=== PATIENT | male | born 1995 ===

== ENCOUNTER 2023-06-18 11:59 | Emergency (ER) | payer SELFPAY ==
[2023-06-18 12:00] VITALS: BP 223/131; PULSE 98; TEMP 37.1; O2SAT 98; BMI 56.0
[2023-06-18 12:19] LABS: Basophils # 0.1 10^3/uL (0.0-0.1); Basophils % 0.4 %; Eosinophils % 0.2 %; Hematocrit 43.6 % (37-53); Lymphocytes # 1.5 10^3/uL (0.8-4.8); Lymphocytes % 9.2 %; Mean Corpuscular HGB Conc 33.3 g/dL (30-55); Mean Corpuscular Hemoglobin 26.8 pg (27-33); Mean Corpuscular Volume 80.4 fl (82-101); Mean Platelet Volume 9.5 fL (7.4-10.4); Monocytes # 0.6 10^3/uL (0.2-0.9); Monocytes % 3.7 %; Neutrophils # 13.63 10^3/uL (1.8-7.7); Neutrophils % 86.1 %; Nucleated Red Blood Cells % 0 %; Platelet Count 271 10^3/cmm (157-399); Red Blood Count 5.42 10^6/uL (3.85-5.65); Red Cell Distribution Width 13.3 % (12.1-15.1); White Blood Count 15.82 10^3/uL (3.29-11.43)
--- NOTE | 2023-06-18 12:44 | CT_ITS ---
WS: [id number] CT ABDOMEN AND PELVIS NONCONTRAST HISTORY: L lower abdominal/back pain TECHNIQUE: Imaging performed through the abdomen and pelvis. Coronal and sagittal reformats are submi tted. All CT scans at [facility] use at least one of these dose optimization techniques: auto mated exposure control; mA and/or kV adjustment per patient size (includes targeted exams where dose is matched to clinical indication); or iterative reconstruction. DLP: 1398.13 mGy.cm COMPARISON: None available. Lower thorax: Significant motion artifact at the lung bases. Liver: Multiple megaly and hepatic steatosis. Gallbladder: Normal gallbladder. No pericholecystic fluid or cholelithiasis. No gallbladder wall thic kening. Pancreas: Normal size and attenuation. Normal pancreatic duct. No pancreatitis or mass. Spleen: Normal. Adrenal glands: Normal. No mass. Right kidney: Normal size kidney with no mass or hydronephrosis. Left kidney: Normal size kidney. 5 mm calcification proximal ureter extends over a length of 6.8 mm. There is mild adjacent periureteral stranding. Very minimal dilatation of the renal pelvis. Distal ur eter is normal caliber. Aorta: Normal abdominal aorta, no aneurysm or atherosclerosis. No free fluid, intraperitoneal air or significant lymphadenopathy. GI tract: Normal stomach and small bowel. Normal appendix. There are a few small diverticula in the d istal colon. No obstruction or colitis. Abdominal wall: Small umbilical hernia contains fat only. Pelvis: Negative urinary bladder. No adenopathy. Osseous structures: Unremarkable. IMPRESSION: 1. Very minimal dilatation of the LEFT renal pelvis secondary to a 5.0 x 6.8 mm calcification in the proximal ureter. 2. Normal appendix. 3. Very minimal sigmoid diverticulosis without acute diverticulitis.
--- NOTE | 2023-06-18 12:44 | ED_ITS ---
HPI - Abdominal Pain 2 General: Chief Complaint: Abdominal Pain Stated Complaint: abd pain Time Seen by Provider: 06/18/23 12:02 Source: patient Mode of arrival: ambulatory Limitations: no limitations History of Present Illness: Patient is a 27-year-old male presents to ED today with complaint of fairly acute onset left-sided back pain and abdominal pain that began shortly after he awoke this morning. Patient states he felt the urge to defecate but could not. He does report over the last several days his bowel movements have been normal. He is not having any urinary complaints. He states a few months ago he was possibly diagnosed with a kidney stone after having some blood in his urine although no imaging was ever obtained. Patient has not been running fevers. He states he feels nauseous secondary to the pain. He arrives very hypertensive that he feels like his pain related. He does have a history of hypertension and takes medication for this and states it is normally elevated but never that high . MD elicited complaint: abdominal pain Pertinent past history: none Onset (ago): hour(s) Pain Consistency: constant Location: LLQ Severity: severe Quality: stabbing and sharp Radiation: L flank Migration to: no migration Exacerbating factors: nothing Relieving factors: nothing Associated Symptoms: Reports nausea; Denies change in bowel habits, chills, GI cramping, diarrhea, dysuria, fever(s), hematochezia, melena and vomiting Review of Systems 2 Const: Denies: fever(s), chills, body aches, fatigue or malaise Card: Denies: chest pain Resp: Denies: dyspnea GI: Reports: abdominal pain and nausea; Denies: vomiting, diarrhea, GI cramping, change in bowel habits, hematochezia or melena : Reports: flank pain; Denies: difficulty urinating, dysuria, urinary frequency, urinary urgency or urinary hesitancy Musc: Reports: back pain (left); Denies: neck pain, extremity pain, extremity swelling, joint pain or joint swelling Skin/Breast: Denies: rash Neuro: Denies: headache(s), numbness in extremities, weakness in extremities, sensory changes or dizziness Physical Exam 2 Const: COMMON NORMALS: patient oriented x3, no limitations, alert and well nourished GENERAL APPEARANCE: cooperative and in distress (appears uncomfortable secondary to pain) NUTRITIONAL APPEARANCE: obese morbidly obese (BMI of 56.1) ORIENTATION/CONSCIOUSNESS: Yes awake, Yes oriented to person, Yes oriented to place and Yes oriented to time Eye: COMMON NORMALS: no scleral icterus Resp: COMMON NORMALS: normal respiratory effort and clear to auscultation bilaterally AUSCULTATION: clear to auscultation bilaterally Cardio: COMMON NORMALS: regular rate and regular rhythm RATE: regular rate RHYTHM: regular rhythm GI: COMMON NORMALS: Normal to inspection, nondistended, normoactive bowel sounds present, Soft to palpation, No hepatosplenomegaly present and no masses INSPECTION: Yes normal to inspection AUSCULTATION: Yes normoactive bowel sounds PALPATION: Yes Soft to palpation, Yes Tenderness to palpation present (GI) (LLQ), No Guarding due to palpation present (GI), No Rigid due to palpation and Yes No hepatosplenomegaly present OTHER: exam somewhat limited by body habitus : BLADDER/KIDNEY EXAM: Yes CVA tenderness on the left Back/Pelvis: COMMON NORMALS: thoracic and lumbar spine normal to inspection GENERAL BACK: Yes CVA tenderness Extremity: GENERAL: Yes normal exam except as noted Neuro: COMMON NORMALS: patient oriented x3 SENSORIUM/ORIENTATION: Yes alert, Yes oriented to person, Yes oriented to place and Yes oriented to time Skin: COMMON NORMALS: no rashes or lesions noted GENERAL SKIN EXAM: no rashes or lesions noted Course 2 Consultations: Consultation #1: Dr. Tam-does not feel like patient needs abx; recommends flomax x 3 wks and pain/nausea meds and he will follow up in office Vital Signs: Vital signs: Vital Signs Temperature 98.7 F 06/18/23 12:00 Pulse Rate 81 06/18/23 13:00 Respiratory Rate 20 H 06/18/23 13:00 Blood Pressure 185/98 06/18/23 13:00 Pulse Oximetry 98 06/18/23 13:00 Oxygen Delivery Me thod Room Air 06/18/23 13:00 MDM - Abdominal Pain Medical Decision Making Patient is a nice 27-year-old male here for complaints of acute onset left back and abdominal pain. He was found to have a 5 x 6.8 mm proximal ureter stone. He is not tachycardic or febrile. He is hypertensive which he has a history of. This most likely is exacerbated by pain. Pain was controllable here. Blood work shows a white count of 15.8. Chemistry is unremarkable. His urine has 3+ blood. There is 25-40 WBCs. Negative nitrates, trace leuks, trace bacteria. Will culture. Case ran by Dr. Tam at [facility] urology who recommends placing him on pain/nausea meds as well as Flomax and he will follow-up in office. CM referral placed. Did not feel like he needed antibiotics at this time. Strict return to ED precautions given. Medical Records I reviewed the patient's medical records. Lab Data I reviewed the patient's lab results. 06/18/23 12:14 06/18/23 12:14 Labs/Radiology: Laboratory Results WBC 15.82 10^3/uL (3.29-11.43) H 06/18/23 12:14 RBC 5.42 10^6/uL (3.85-5.65) 06/18/23 12:14 Hgb 14.50 g/dL (11.27-16.99) 06/18/23 12:14 Hct 43.6 % (37-53) 06/18/23 12:14 MCV 80.4 fl (82-101) L 06/18/23 12:14 MCH 26.8 pg (27-33) L 06/18/23 12:14 MCHC 33.3 g/dL (30-55) 06/18/23 12:14 RDW 13.3 % (12.1-15.1) 06/18/23 12:14 Plt Count 271 10^3/cmm (157-399) 06/18/23 12:14 MPV 9.5 fL (7.4-10.4) 06/18/23 12:14 Neut % (Auto) 86.1 % 06/18/23 12:14 Lymph % (Auto) 9.2 % 06/18/23 12:14 [place] % (Auto) 3.7 % 06/18/23 12:14 Eos % (Auto) 0.2 % 06/18/23 12:14 Baso % (Auto) 0.4 % 06/18/23 12:14 Neut # (Auto) 13.63 10^3/uL (1.8-7.7) H 06/18/23 12:14 Lymph # (Auto) 1.5 10^3/uL (0.8-4.8) 06/18/23 12:14 [place] # (Auto) 0.6 10^3/uL (0.2-0.9) 06/18/23 12:14 Eos # (Auto) 0.0 10^3/uL (0.0-0.8) 06/18/23 12:14 Baso # (Auto) 0.1 10^3/uL (0.0-0.1) 06/18/23 12:14 Nucleated RBC % (auto) 0 % 06/18/23 12:14 Nucleated RBCs # 0.0 /100WBC 06/18/23 12:14 Sodium 134 mmol/L (136-145) L 06/18/23 12:14 Potassium 4.0 mmol/L (3.5-5.1) 06/18/23 12:14 Chloride 98 mmol/L (98-107) 06/18/23 12:14 Carbon Dioxide 23 mmol/L (22-29) 06/18/23 12:14 Anion Gap 17.0 (5-19) 06/18/23 12:14 BUN 15 mg/dL (6-20) 06/18/23 12:14 Creatinine 1.0 mg/dL (0.7-1.2) 06/18/23 12:14 GFR Calculation 90.3 mL/min (90-130) 06/18/23 12:14 Glucose 208 mg/dL (65-115) H 06/18/23 12:14 Calculated Osmolality 285 mOsm/kg (285-295) 06/18/23 12:14 Calcium 8.9 mg/dL (8.5-10.5) 06/18/23 12:14 Total Bilirubin 0.4 mg/dL (0.15-1.2) 06/18/23 12:14 AST 39 U/L (0-40) 06/18/23 12:14 ALT 74 U/L (0-41) H 06/18/23 12:14 Alkaline Phosphatase 121 U/L (40-130) 06/18/23 12:14 Total Protein 8.5 g/dL (6.6-8.7) 06/18/23 12:14 Albumin 4.1 g/dL (3.5-5.2) 06/18/23 12:14 Globulin 4.4 g/dL (1.3-4.6) 06/18/23 12:14 Lipase 23 U/L (13-60) 06/18/23 12:14 Urine Color Yellow (Yellow) 06/18/23 12:58 Urine Appearance Sl hazy (CLEAR) A 06/18/23 12:58 Urine pH 5 (5-7) 06/18/23 12:58 Ur Specific [place] 1.020 (1.005-1.030) 06/18/23 12:58 Urine Protein Trace (Negative) 06/18/23 12:58 Urine Glucose (UA) 1+ (Normal) H 06/18/23 12:58 Urine Ketones Negative (Negative) 06/18/23 12:58 Urine Blood 3+ (Negative) H 06/18/23 12:58 Urine Nitrate Negative (Negative) 06/18/23 12:58 Urine Bilirubin Neg (Negative) 06/18/23 12:58 Urine Urobilinogen Norm mg/dL (Negative) 06/18/23 12:58 Ur Leukocyte Esterase Trace (Negative) H 06/18/23 12:58 Urine RBC 25-40 /hpf (0-2) H 06/18/23 12:58 Urine WBC 25-40 /hpf (0-5) H 06/18/23 12:58 Ur Squamous Epith Cells 0-4 /hpf (0-5) H 06/18/23 12:58 Amorphous Sediment Not Reportable 06/18/23 12:58 Urine Bacteria Trace /hpf (NONE) 06/18/23 12:58 Urine Mucus Trace /hpf 06/18/23 12:58 All radiology interpretation(s) finalized by discharge Discharge Plan Discharge Patient Disposition: Home Clinical Impression: Calculus of proximal left ureter Condition: Stable Prescriptions: New hydrocodone-acetaminophen 5-325 mg tablet 1 tab PO .q 4-6 PRN (Reason: pain) Qty: 20 0RF Flomax 0.4 mg capsule 0.4 mg PO DAILY Qty: 21 0RF ondansetron 4 mg tablet,disintegrating 4 mg PO Q8H PRN (Reason: nausea and vomiting) Qty: 15 0RF ketorolac 10 mg tablet 10 mg PO Q8H PRN (Reason: pain) 3 Days Qty: 9 0RF No Action fluoxetine 40 mg capsule 40 mg PO QAM metformin 500 mg tablet 500 mg PO BID metoprolol succinate 50 mg tablet extended release 24 hr 50 mg PO QPM amlodipine 5 mg tablet 5 mg PO QPM simvastatin 20 mg tablet 20 mg PO QPM Claritin 10 mg Tablet 10 mg PO DAILY PRN (Reason: Allergy Symptoms) Prilosec OTC 20 mg Tablet,Delayed Release (Dr/Ec) 20 mg PO DAILY losartan-hydrochlorothiazide 100-12.5 mg tablet 1 tab PO QPM Discharge Orders: Discharge ED (Routine); Ordered 06/18/23 Ordered By: Bonny Morales Patient Instructions: Ureteral Stones (ED) Activity Restrictions/Additional Instructions: As we discussed I consulted with a Dr. Tam with [facility] urology who recommended placing you on pain/nausea meds and Flomax. Their office will follow-up with you. I have placed a case management referral for this and they should be contacting you this week to help set you up with your appointment. If you have not heard from them by mid week please contact their office. Their phone number is [phone]. As we discussed you need to return to the emergency department for worsening or uncontrollable pain, repetitive episodes of vomiting, fevers, generally feeling worse or unwell, or any other concerns you may have. DRINK PLENTY OF FLUIDS/WATER IN ATTEMPTS TO MOVE/PASS STONE. STRAIN URINE AND BRING ANY PASSED STONE WITH YOU TO YOUR UROLOGY APPOINTMENT. Coding Level of Care Code ED Surveyor Mine for Fifi Sutton
[2023-06-18 12:49] LABS: Alanine Aminotransferase 74 U/L (0-41); Albumin Level 4.1 g/dL (3.5-5.2); Alkaline Phosphatase 121 U/L (40-130); Aspartate Amino Transferase 39 U/L (0-40); Blood Urea Nitrogen 15 mg/dL (6-20); Calcium 8.9 mg/dL (8.5-10.5); Carbon Dioxide 23 mmol/L (22-29); Chloride 98 mmol/L (98-107); Globulin 4.4 g/dL (1.3-4.6); Glomerular Filtration Rate 90.3 mL/min (90-130); Glucose 208 mg/dL (65-115); Lipase 23 U/L (13-60); Osmolality Calculated 285 mOsm/kg (285-295); Sodium 134 mmol/L (136-145); Total Bilirubin 0.4 mg/dL (0.15-1.2); Total Protein 8.5 g/dL (6.6-8.7)
[2023-06-18 13:00] VITALS: BP 185/98; PULSE 81; RESP 20; O2SAT 98
[2023-06-18] MEDS: ketorolac 30 mg/mL INJ IVP (13:00)
[2023-06-18 13:12] LABS: Add Urine Culture? Yes; Add Urine Microscopic? YES; Bacteria Urine TRACE /hpf; Bilirubin Urine Neg (Negative); Blood Urine 3+ (Negative); Glucose Urine UA 1+ (Normal); Ketones Urine Negative (Negative); Leukocyte Esterase Urine Trace (Negative); Mucus Urine TRACE /hpf; Nitrate Urine Negative (Negative); Protein Urine Trace (Negative); RBC Urine 25-40 /hpf (0-2); Squamous Epithelial Cell Urine 0-4 /hpf (0-5); Urine Appearance SL Hazy (CLEAR); Urine Color Yellow (Yellow); Urobilinogen Urine Norm (Negative); WBC Urine 25-40 /hpf (0-5); pH Urine 5 (5-7)
--- NOTE | 2023-06-18 14:07 | DCPLANNER ---
I faxed patients chart and clouded images to [facility] on 06/18/23 at [id number]. Clinic to contact patient with an appt. I faxed to: [phone]. Phone Number to this clinic is: [phone]
[2023-06-18 14:28] VITALS: BP 166/85; PULSE 84; RESP 18; O2SAT 96
== END 2023-06-18 14:30 | disposition home or self-care (01) ==
PROVIDERS: Emergency Provider Physician Assistant
DX: N20.1 Calculus of ureter (principal); Z79.84 Long term (current) use of oral hypoglycemic drugs
CPT/HCPCS: 74176; 80053; 81001; 83690; 85025; 87077; 87086; 87186; 96374; 99285; J1885